=== PATIENT | male | born 1980 | race Asian ===

== ENCOUNTER 2019-06-29 18:37 | Emergency (ER) | payer SELFPAY ==
[~2019-06-29] VITALS: Ht 170.2 cm; Wt 59.1 kg
[2019-06-29] MEDS ORDERED: TOBRAMYCIN/DEXAMETHASONE 5 ML OPHTHALMIC SUSPENSION OD ONE (21:30)
[2019-06-29] MEDS ORDERED: PROPARACAINE HCL 0.5% 15 ML OPHTHALMIC SOLUTION OD ONE (21:30)
[2019-06-29] MEDS ORDERED: NEOMYCIN/POLYMYXIN B/DEXAMETH 5 ML OPHTHALMIC SUSPENSION OD ONE (21:45)
[2019-06-29 21:59] VITALS: BP 162/98
== END 2019-06-29 22:05 | disposition home or self-care (01) ==
LOC: EMS 18:39
DX: H10.211 Acute toxic conjunctivitis, right eye (principal)